=== PATIENT | female | born 1960 | race Caucasian/White ===

== ENCOUNTER → 2017-07-26 | Outpatient (CLI) | payer MEDICAID ==
--- NOTE | 2017-07-26 10:54 | RADIOLOGY REPORT PS360 ---
CHEST(2 VIEWS-NOT PORTABLE) COMPARISON: PA and lateral chest 05/21/2017 HISTORY: Persistent cough TECHNIQUE: PA and lateral chest FINDINGS: Moderately severe emphysematous changes are again noted with hyperexpansion lung golden and increase in the retrosternal clear space. There is minimal post inflammatory scarring at the left base. There are small bilateral pleural effusions. There is minor thickening of the minor fissure. Cardiac size is normal and the vascularity is normal. Again noted is minimal post inflammatory scarring in the lingula. IMPRESSION: Moderately severe underlying COPD with new finding of small bilateral pleural effusions, as mentioned there appears be post inflammatory scarring in the lingula though minimal superimposed infiltrate is a consideration as well.
== END ==
LOC: RAD 09:16
DX: R05 Cough (principal)

== ENCOUNTER 2017-09-01 10:18 | Emergency (ER) | payer MEDICAID ==
[~2017-09-01] VITALS: Ht 165.1 cm; Wt 63.5 kg
[2017-09-01] MEDS ORDERED: ADVAIR 250/5028 PUFF IN (10:34)
[2017-09-01] MEDS ORDERED: VENTOLIN H0.09 MG/Ac IH (10:34)
[2017-09-01] MEDS ORDERED: ATIVAN1 MG PO (10:34)
[2017-09-01] MEDS ORDERED: AMITRIPTYLINE 550 MG PO (10:34)
[2017-09-01] MEDS ORDERED: ALBUTEROL SULFAT3 M2 IH (10:35)
--- NOTE | 2017-09-01 10:38 | Emergency Room Report ---
History of Present Illness Time Seen by [id number] Presenting Problem in Triage Pt arrived:Wheelchair Presenting Problem:PT REPORTS HAS PLUEREX TUBES ON KAILEE SIDES OF CHEST IN RIB AREA, PRESENTS TO ER STATING NEED FLUID DRAINED OFF OF HER LUNGS BY HER TUBES. 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 N Clinical Suspician of Infection? N Mental Status: 1 - Regular (Normal Baseline) Sepsis Risk:Possible Sepsis Risk Have you (or family members/close friends) recently traveled outside the [place]? N If Yes, where/when: Have you had exposure to infectious disease within the past month? N TB? Other? Specify: 57 years old white female with metastatic breast cancer and malignant pleural effusion bilaterally. She underwent bilateral chest tubes at [facility], she was getting drained by home health nurse at home and they are out of supplies. She was brought to the ED. She is chronic obstructive pulmonary disease patient who continues to smoke, she complains of mild torso breath and she has not given herself a breathing treatment this morning. She usually goes to [facility]. 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 Respiratory see HPI, shortness of breath (baseline shortness of breath) Cardiovascular no symptoms reported Gastrointestinal no symptoms reported Genitourinary no symptoms reported. Musculoskeletal no symptoms reported Skin no symptoms reported Psychiatric/Neurological no symptoms reported Physical Exam Vital Signs Vital Signs Date Time Temp Pulse Resp B/P Pulse O2 O2 Flow FiO2 Ox Delivery Rate 09/01 1023 99.0 91 22 122/73 96 3 - WBC >12,000 or <4,000 or 10% bands? 2 or more SIRS Criteria Met? B/P:122/73 MAP:89 Creatinine >2.0? UA output<0.5ml/kg/hr for 2 hrs? Platelet count >100,000? Lactate >2.0mmol/1? INR >1.2 or PTT > than 60 sec? Evidence of Organ Dysfunction? Provider documented clinical suspician of infection? N Sepsis Criteria Count: 2 Sepsis Risk: Possible Sepsis Risk General Appearance normal appearance, WD/WN, no apparent distress Eye Exam - bilateral eye normal exam, bilateral eye PERRL, bilateral eye EOMI Ear, Nose, Throat hearing grossly normal, normal ENT inspection Neck normal inspection, non-tender, supple, full range of motion Respiratory Status Yes: trachea midline, chest symmetrical, non tender chest. No: respiratory distress. Lung Sounds bilateral: lungs clear, decreased breath sounds (minimal expiratory wheeze), wheezing (minimal expiratory wheeze). 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 No Results/Orders Orders Procedure Date/time Status CHEST-PORTABLE 09/01 1030 Active XRAY/CT/US XRAY/CT/US XRAY chest XR interpretation by reviewed by me, discussed w/radiologist Comment IMPRESSION: 1. Bilateral pleural effusions. Small right effusion a medium-sized left effusion which is increasing in size. 2. Chronic parenchymal changes. 3. Bibasilar atelectasis with atelectasis/pneumonia in the left lower lobe Departure Departure Time of Disposition 1036 Disposition DC Home or Self Care(routine) Clinical Impression Primary Impression: Malignant pleural effusion Secondary Impressions: COPD (chronic obstructive pulmonary disease), Metastatic breast cancer, Tobacco use Condition STABLE Referrals JONATHAN LEMACARMELO (Family) Additional Instructions I called Dr Gama doan for Dr Camacho who recommened using a 12 F, he stated that he has no access to them in [facility]. [facility] has no pleurx system and I attempted to access the hub with no match. I called [facility] who asaid they will get the supplies tomorrow ,. The patient insisting to be drained today despite that she has no acute resp distress. Mirian Thompson my camp housekeeper called [facility] for pleurx system . I reviewed the x ray report and actual x rays with the karson and her daughter. IMPRESSION: 1. Bilateral pleural effusions. Small right effusion a medium-sized left effusion which is increasing in size. 2. Chronic parenchymal changes. 3. Bibasilar atelectasis with atelectasis/pneumonia in the left lower lobe The patient remined hemodynamically stable, sat > 92 % on her supplemental oxygen, in fact she walked to discussed her x ray without exertional dyspnea. While patient was awaiting on [facility] to callback and decided to go home and call Mirian Thompson back to know if she should go to the [facility] later. I advised her to remin sitting upright, use her ativan for anxiety and sleep, to return if sat drops less than 90%. They verbalized understanding. Discharge Counseling Counseled pt/family regarding diagnosis, test results, home care, follow up needs ED Critical Care Critical Care No If Critical Care minutes are documented, the time involved in the performance of seperately reportable procedures was not counted toward critical care time documented. I directly delivered medical care to this critically ill and/or injured patient. Timely evaluation and treatment was necessary to address the significant organ system(s) dysfunction present in this patient. at [id number]
--- NOTE | 2017-09-01 10:38 | Emergency Room Report ---
History of Present Illness Time Seen by [id number] Presenting Problem in Triage Pt arrived:Wheelchair Presenting Problem:PT REPORTS HAS PLUEREX TUBES ON KAILEE SIDES OF CHEST IN RIB AREA, PRESENTS TO ER STATING NEED FLUID DRAINED OFF OF HER LUNGS BY HER TUBES. 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 N Clinical Suspician of Infection? N Mental Status: 1 - Regular (Normal Baseline) Sepsis Risk:Possible Sepsis Risk Have you (or family members/close friends) recently traveled outside the [place]? N If Yes, where/when: Have you had exposure to infectious disease within the past month? N TB? Other? Specify: 57 years old white female with metastatic breast cancer and malignant pleural effusion bilaterally. She underwent bilateral chest tubes at [facility], she was getting drained by home health nurse at home and they are out of supplies. She was brought to the ED. She is chronic obstructive pulmonary disease patient who continues to smoke, she complains of mild torso breath and she has not given herself a breathing treatment this morning. She usually goes to [facility]. 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 Respiratory see HPI, shortness of breath (baseline shortness of breath) Cardiovascular no symptoms reported Gastrointestinal no symptoms reported Genitourinary no symptoms reported. Musculoskeletal no symptoms reported Skin no symptoms reported Psychiatric/Neurological no symptoms reported Physical Exam Vital Signs Vital Signs Date Time Temp Pulse Resp B/P Pulse O2 O2 Flow FiO2 Ox Delivery Rate 09/01 1023 99.0 91 22 122/73 96 3 - WBC >12,000 or <4,000 or 10% bands? 2 or more SIRS Criteria Met? B/P:122/73 MAP:89 Creatinine >2.0? UA output<0.5ml/kg/hr for 2 hrs? Platelet count >100,000? Lactate >2.0mmol/1? INR >1.2 or PTT > than 60 sec? Evidence of Organ Dysfunction? Provider documented clinical suspician of infection? N Sepsis Criteria Count: 2 Sepsis Risk: Possible Sepsis Risk General Appearance normal appearance, WD/WN, no apparent distress Eye Exam - bilateral eye normal exam, bilateral eye PERRL, bilateral eye EOMI Ear, Nose, Throat hearing grossly normal, normal ENT inspection Neck normal inspection, non-tender, supple, full range of motion Respiratory Status Yes: trachea midline, chest symmetrical, non tender chest. No: respiratory distress. Lung Sounds bilateral: lungs clear, decreased breath sounds (minimal expiratory wheeze), wheezing (minimal expiratory wheeze). 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 No Results/Orders Orders Procedure Date/time Status CHEST-PORTABLE 09/01 1030 Active XRAY/CT/US XRAY/CT/US XRAY chest XR interpretation by reviewed by me, discussed w/radiologist Comment IMPRESSION: 1. Bilateral pleural effusions. Small right effusion a medium-sized left effusion which is increasing in size. 2. Chronic parenchymal changes. 3. Bibasilar atelectasis with atelectasis/pneumonia in the left lower lobe Departure Departure Time of Disposition 1036 Disposition DC Home or Self Care(routine) Clinical Impression Primary Impression: Malignant pleural effusion Secondary Impressions: COPD (chronic obstructive pulmonary disease), Metastatic breast cancer, Tobacco use Condition STABLE Referrals JONATHAN LEMACARMELO (Family) Additional Instructions I called Dr Gama doan for Dr Camacho who recommened using a 12 F, he stated that he has no access to them [facility] has no pleurx system and I attempted to access the hub with no match. I called [facility] who asaid they will get the supplies tomorrow ,. The patient insisting to be drained today despite that she has no acute resp distress. Mirain Thompson my house rn called [facility] for pleurx system . I reviewed the x ray report and actual x rays with the karson and her daughter. IMPRESSION: 1. Bilateral pleural effusions. Small right effusion a medium-sized left effusion which is increasing in size. 2. Chronic parenchymal changes. 3. Bibasilar atelectasis with atelectasis/pneumonia in the left lower lobe The patient remined hemodynamically stable, sat > 92 % on her supplemental oxygen, in fact she walked to discussed her x ray without exertional dyspnea. While patient was awaiting on [facility] to callback and decided to go home and call Mirian Thompson back to know if she should go to the [facility] later. I advised her to remin sitting upright, use her ativan for anxiety and sleep, to return if sat drops less than 90%. They verbalized understanding. Discharge Counseling Counseled pt/family regarding diagnosis, test results, home care, follow up needs ED Critical Care Critical Care No If Critical Care minutes are documented, the time involved in the performance of seperately reportable procedures was not counted toward critical care time documented. I directly delivered medical care to this critically ill and/or injured patient. Timely evaluation and treatment was necessary to address the significant organ system(s) dysfunction present in this patient. at 5200
--- OUTSIDE RECORDS SUMMARY | 2017-09-01 10:41 | External Medical Summary Rpt | CCD ---
Author Author , JASWANT MICHAUD Address Unknown Phone [email or web address] Purpose Continuity of Care Document - 08-20-2017 through 2016 Problems Code Diagnosis DOS Provider Status J90 Pleural effusion, not elsewhere classified Results Labs Lab Lab Date Result Refere Interp Status Commen Order Detail nces retati t Range on Hgb A1c Bld (08-20-2017 13:05) Comment: The [place] [employer] recommends maintenance of Hemoglobin A1C at 7.0% or lower. Goals for Hemoglobin A1C reduction may need to be modified if hypoglycemia is a problem. Hgb A1c 6.00 % 4.80-5. complet MFr 017 60 ed Bld 13:05 CBC (hemogram) Bld Auto (08-20-2017 13:05) WBC 08-20-2 11.91 3.50-10 complet nRBC 017 10*3/mm .80 ed cor # 13:05 3 Bld RBC # 08-20-2 5.29 3.89-5. complet Bld 017 10*6/mm 14 ed Auto 13:05 3 Hgb 08-20-2 16.0 11.5-15 complet Bld-mCn 017 g/dL .5 ed c 13:05 Hct VFr 08-20-2 47.6 % 34.5-44 complet Bld 017 .0 ed Auto 13:05 MCV RBC 08-20-2 90.0 fL 80.0-99 complet Auto 017 .0 ed 13:05 MCH RBC 08-20-2 30.2 pg 27.0-31 complet Qn 017 .0 ed Auto 13:05 MCHC 08-20-2 33.6 32.0-36 complet RBC 017 g/dL .0 ed Auto-mC 13:05 nc RDW RBC 08-20-2 13.9 % 11.3-14 complet 017 .5 ed Auto-Rt 13:05 o RDW RBC 08-20-2 45.5 fl 37.0-54 complet Auto 017 .0 ed 13:05 PMV Bld 9.7 fL 6.0-12. complet Auto 017 0 ed 13:05 Platele 512 150-450 complet t # Bld 017 10*3/mm ed Auto 13:05 3
--- OUTSIDE RECORDS SUMMARY | 2017-09-01 10:41 | External Medical Summary Rpt | CCD ---
Author Author [employer] Organization [employer] Address Unknown Phone Unavailable Purpose Continuity of Care Document - through 2016
--- OUTSIDE RECORDS SUMMARY | 2017-09-01 10:41 | External Medical Summary Rpt | CCD ---
Author Author , JASWANT MICHAUD Address Unknown Phone [email or web address] Purpose Continuity of Care Document - 08-20-2017 through 2016 Problems Code Diagnosis DOS Provider Status J90 Pleural effusion, not elsewhere classified Results Labs Lab Lab Date Result Refere Interp Status Commen Order Detail nces retati t Range on Hgb A1c Bld (08-20-2017 13:05) Comment: The [place] [employer] recommends maintenance of Hemoglobin A1C [...]
--- OUTSIDE RECORDS SUMMARY | 2017-09-01 10:42 | External Medical Summary Rpt | CCD ---
Demographics Preferred Language Austrian Marital Status Unknown Evangelical Affiliation Unknown Race Unknown Ethnic Group Unknown Author Author , JASWANT MICHAUD Address Unknown Phone Immunization No patient found.
--- OUTSIDE RECORDS SUMMARY | 2017-09-01 10:42 | External Medical Summary Rpt ---
Author Author JASWANT Puente, JASWANT Puente Organization [employer] Address Unknown Phone Unavailable
--- OUTSIDE RECORDS SUMMARY | 2017-09-01 10:42 | External Medical Summary Rpt | CCD ---
Demographics Preferred Language Vincentian Marital Status Unknown Shinto Affiliation Unknown Race Unknown Ethnic Group Unknown Author Author , JASWANT MICHAUD Address Unknown Phone Immunization No patient found.
--- NOTE | 2017-09-01 11:10 | RADIOLOGY REPORT PS360 ---
CHEST-PORTABLE HISTORY: Shortness of air SOA ORDERING PHYSICIAN: Mauri Coyle MD PATIENT AGE: 57 years COMPARISON: 07/26/2017 FINDINGS: There is an enlarging left pleural effusion medium-sized in nature with small right pleural effusion not significant change. Chronic interstitial changes are present with atelectatic changes in both lower lobes. Increased density left lung base which maybe related to atelectasis or pneumonia. Normal heart size. IMPRESSION: 1. Bilateral pleural effusions. Small right effusion a medium-sized left effusion which is increasing in size. 2. Chronic parenchymal changes. 3. Bibasilar atelectasis with atelectasis/pneumonia in the left lower lobe
[2017-09-01 11:52] VITALS: BP 126/72
== END 2017-09-01 11:55 | disposition home or self-care (01) ==
LOC: ER 10:18
DX: C50.919 Malignant neoplasm of unspecified site of unspecified female breast (principal); J91.0 Malignant pleural effusion; J44.9 Chronic obstructive pulmonary disease, unspecified; F17.210 Nicotine dependence, cigarettes, uncomplicated; Z79.899 Other long term (current) drug therapy